=== PATIENT | female | born 1945 | race Caucasian/White ===

== ENCOUNTER 2018-12-23 14:16 | Emergency (ER) | payer MEDICARE, BC ==
[2018-12-23 14:42] VITALS: BP 148/111
--- NOTE | 2018-12-23 15:24 | UC ---
Skin Complaint HPI - HPI Summary HPI Summary: 73-year-old female presents for redness, swelling, and tenderness of the left arm. States this morning she noticed pain in her shoulder. She is visiting friends in the area from [place] and state in the time it took her to drive here she developed the redness and swelling that involves most of her arm. Also noted some shaking chills. She has history of both thyroid and breast cancer but states she has been in remission for years. 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 Denies chest pain or SOB. - History of Current Complaint Chief Complaint: UCSkin Time Seen by Provider: 12/23/18 14:54 Stated Complaint: SKIN COMPLAINT Hx Obtained From: Patient Pain Intensity: 5 - Allergy/Home Medications Allergies/Adverse Reactions: Allergies Allergy/AdvReac Type Severity Reaction Status Date / Time morphine Allergy Itching Verified 12/23/18 14:41 Home Medications: Home Medications Acetaminophen [Pain Relief Extra Strength] 2 tab PO ONCE PRN 12/23/18 [History Confirmed 12/23/18] Aspirin 1 tab PO DAILY 12/23/18 [History Confirmed 12/23/18] Cholecalciferol (Vitamin D3) [Vitamin D3] 5,000 unit PO DAILY 12/23/18 [History Confirmed 12/23/18] Estrogen Ring 1 unit VAGINAL ONCE 12/23/18 [History Confirmed 12/23/18] Levothyroxine TAB* [Synthroid 125 MCG TAB*] 1 tab PO DAILY 12/23/18 [History Confirmed 12/23/18] Propafenone HCl [Propafenone HCl ER] 1 tab PO BID 12/23/18 [History Confirmed ] Simvastatin 1 tab PO DAILY 12/23/18 [History Confirmed 12/23/18] PMH/Surg Hx/FS Hx/Imm Hx Endocrine History: Thyroid Disease, Dyslipidemia Cardiovascular History: Other - atrial tachycardia Other Cardiovascular History: Lymphedema left arm - Surgical History Surgical History: Yes Surgery Procedure, Year, and Place: lobectomy. lumpectomy left breast. thyroidectomy - Family History Known Family History: Positive: Non-Contributory - Social History Occupation: Retired Lives: With Family Alcohol Use: Daily Substance Use Type: Marijuana Smoking Status (MU): Never Smoked Tobacco Review of Systems All Other Systems Reviewed And Are Negative: Yes Constitutional: Positive: Chills Skin: Positive: Other - See HPI Respiratory: Positive: Negative Cardiovascular: Positive: Negative Gastrointestinal: Positive: Negative Genitourinary: Positive: Negative Musculoskeletal: Positive: Negative Neurological: Positive: Negative Is Patient Immunocompromised?: No Physical Exam - Summary Physical Exam Summary: GENERAL APPEARANCE: Alert and cooperative older adult female who appears to be in no acute distress. CARDIAC: Normal S1 and S2. No S3, S4 or murmurs. Rhythm is regular. There is no peripheral edema, cyanosis or pallor. Extremities are warm and well perfused. Capillary refill is less than 2 seconds. Peripheral pulses intact. LUNGS: Clear to auscultation without rales, rhonchi, wheezing or diminished breath sounds. ABDOMEN: Positive bowel sounds. Soft, nondistended, nontender. No guarding or rebound. No masses or hepatosplenomegally. MUSKULOSKELETAL: ROM intact to all extremities. No joint erythema or tenderness. Normal muscular development. Normal gait. EXTREMITIES: Circumferential tender, erythema that extends from the right wrist to mid upper arm. Increased warmth. No obvious lesions, induration, or fluctuance. Circulation and sensation intact. SKIN: Skin normal color, texture and turgor with no lesions or eruptions. Triage Information Reviewed: Yes Vital Signs: Initial Vital Signs Temp 100.2 F 12/23/18 14:28 Pulse 88 12/23/18 14:28 Resp 18 12/23/18 14:28 BP 148/111 12/23/18 14:28 Pulse Ox 97 12/23/18 14:28 Vital Signs Reviewed: Yes Course/Dx - Course Course Of Treatment: 73-year-old female presents for redness, swelling, and tenderness of the left arm. States this morning she noticed pain in her shoulder. She is visiting friends in the area from [place] and state in the time it took her to drive here she developed the redness and swelling that involves most of her arm. Also noted some shaking chills. She has history of both thyroid and breast cancer but states she has been in remission for years. 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 Denies chest pain or SOB. Elevated temperature of 100.2 F. Hypertensive otherwise vital signs stable. Patient had circumferential tender, erythema that extends from the right wrist to mid upper arm. Increased warmth to touch. No obvious lesions, induration, or fluctuance. Circulation and sensation intact. Remainder of exam was unremarkable. I discussed with the patient that with rapid onset of symptoms and elevated temperature along with her underlying medical conditions I am recommending that she be evaluated in the ED at this time. Patient is agreeable to this and is choosing to transfer via private vehicle with her friend driving. - Differential Diagnoses - Skin Complaint Differential Diagnoses: Cellulitis, Lymphangitis, Systemic Illness, Other - DVT - Diagnoses Provider Diagnosis: Fever, Cellulitis of left arm Discharge ED - Sign-Out/Discharge Documenting (check all that apply): Patient Departure All imaging exams completed and their final reports reviewed: No Studies - Discharge Plan Condition: Stable Disposition: HOME Referrals: No Primary Care Phys,NOPCP [Primary Care Provider] - Additional Instructions: I suspect that you have an infection of the skin called cellulitis however I cannot rule out other possible causes. With the rapid onset of your symptoms and your elevated temperature I am recommending that you be evaluated in the emergency room at this time. Go directly to the emergency room from here. - Billing Disposition and Condition Condition: STABLE Disposition: Home
== END 2018-12-23 15:36 | disposition home or self-care (01) ==
LOC: UCEAST 14:16
DX: L03.114 Cellulitis of left upper limb (principal); R50.9 Fever, unspecified; E78.5 Hyperlipidemia, unspecified; Z88.5 Allergy status to narcotic agent; Z79.899 Other long term (current) drug therapy; Z85.3 Personal history of malignant neoplasm of breast
CPT/HCPCS: 99202; G0463

== ENCOUNTER 2018-12-23 16:01 | Emergency (ER) | payer BC, MEDICARE ==
--- NOTE | 2018-12-23 17:24 | ED ---
Skin Complaint - HPI Summary HPI Summary: This pt is a 73 y/o female, with hx lymphedema of left arm, presenting to [facility] from [facility] c/o left arm pain, redness, and swelling today. Pt reports she traveled from [place] to [place], [place] to visit her friends. She notes she left [place] at around 0915 and felt pain in her left upper arm. She notes that 1.5 hours into the car ride she began to experience chills. Pt took Tylenol and chills resolved. Pt arrived to [place] at around 12:30 today and noticed her left arm was hot, swollen and red. Additionally notes her left arm was pruritic. Pt presents to the ED with a temperature of 100.3 F in triage. Denies chest pain, SOB, erythema of eyes, sore throat, chest pain, cough, adb pain, nausea, vomiting, dysuria, hematuria, myalgia, rash or dizziness. Denies any trauma, scrapes, or cuts to left arm. Denies any new exposure to lotions, medications, or soaps. Pt went to Urgent Care today and was referred to the ED to rule out cellulitis. Denies hx of blood clots. PMHx includes lymphedema of left arm, breast CA, thyroid CA. - History of Current Complaint Chief Complaint: EDExtremityUpper Time Seen by Provider: 12/23/18 16:56 Stated Complaint: NEEDS BLOOD WORK PER PT Hx Obtained From: Patient Onset/Duration: Started Hours Ago, Still Present Skin Exposure Onset/Duration: Hours Ago Timing: Constant, Lasting Hours Current Severity: Moderate Pain Intensity: 5 Pain Scale Used: 0-10 Numeric Skin Location: Arm - left Character: Swelling, Pruritus, Pain, Redness Aggravating Symptom(s): Nothing Alleviating Symptom(s): Nothing Associated Signs & Symptoms: Fever, Chills Related History: Other: - hx lymphedema of left arm - Allergy/Home Medications Allergies/Adverse Reactions: Allergies Allergy/AdvReac Type Severity Reaction Status Date / Time morphine Allergy Itching Verified 12/23/18 16:24 PMH/Surg Hx/FS Hx/Imm Hx Endocrine/Hematology History: Reports: Hx Thyroid Disease Musculoskeletal History: Reports: Other Musculoskeletal History - Lymphedema of left arm - Cancer History Cancer Type, Location and Year: breast ca. thyroid ca - Surgical History Surgical History: Yes Surgery Procedure, Year, and Place: lobectomy. lumpectomy left breast. thyroidectomy Infectious Disease History: No Infectious Disease History: Denies: Traveled Outside the [place] in Last 30 Days - Family History Known Family History: Positive: Non-Contributory - Social History Alcohol Use: Daily Substance Use Type: Reports: Marijuana Smoking Status (MU): Never Smoked Tobacco Review of Systems Positive: Fever, Chills Negative: Erythema Negative: Sore Throat Negative: Chest Pain Negative: Shortness Of Breath, Cough Negative: Vomiting, Nausea Negative: dysuria, hematuria Musculoskeletal: Other - POSITIVE: left arm pain Negative: Myalgia, Edema Skin: Other - POSITIVE: left arm swelling and redness Negative: Rash Neurological: Other - NEGATIVE: dizziness All Other Systems Reviewed And Are Negative: Yes Physical Exam - Summary Physical Exam Summary: Constitutional: Well-developed, Well-nourished, Alert. (-) Distressed Skin: Warm, Dry. Left upper extremity: erythema from the wrist up to the elbow, hot to touch, no induration or fluctuance. No axillary lymphadenopathy. No upper arm erythema or swelling. HENT: Normocephalic; Atraumatic Eyes: Conjunctiva normal Neck: Musculoskeletal ROM normal neck. (-) JVD, (-) Stridor, (-) Tracheal deviation Cardio: Rhythm regular, rate normal, Heart sounds normal; Intact distal pulses; The pedal pulses are 2+ and symmetric. Radial pulses are 2+ and symmetric. (-) Murmur Pulmonary/Chest wall: Effort normal. (-) Respiratory distress, (-) Wheezes, (-) Rales Abd: Soft, (-) Tenderness, (-) Distension, (-) Guarding, (-) Rebound Musculoskeletal: (-) Edema Lymph: (-) Cervical adenopathy Neuro: Alert, Oriented x3 Psych: Mood and affect Normal Triage Information Reviewed: Yes Vital Signs On Initial Exam: Initial Vitals Temp Pulse Resp BP Pulse Ox 100.3 F 87 16 98/75 97 12/23/18 16:20 12/23/18 16:20 12/23/18 16:20 12/23/18 16:20 12/23/18 16:20 Vital Signs Reviewed: Yes Procedures - Sedation Patient Received Moderate/Deep Sedation with Procedure: No Diagnostics - Vital Signs Vital Signs Temp Pulse Resp BP Pulse Ox 12/23/18 16:20 100.3 F 87 16 98/75 97 - Laboratory Lab Statement: Any lab studies that have been ordered have been reviewed, and results considered in the medical decision making process. Course/Dx - Course Assessment/Plan: Pt is a 73 y/o female, with hx lymphedema of left arm, presenting to [facility] from [facility] c/o left arm pain, redness, and swelling today. Pt reports she traveled from [place] to [place], [place] to visit her friends. [place] 0915 and felt pain in her left upper arm. She notes that 1.5 hours into the car ride she began to experience chills. Pt took Tylenol and chills resolved. Pt arrived to [place] at around 12:30 today and noticed her left arm was hot, swollen and red. Additionally notes her left arm was pruritic. Blood work was ordered. US of left upper extremity ordered. Sepsis protocol initiated. IN the ED course the pt was given IV fluids, Tylenol , Cefazolin. Pt will be signed out to Dr. Rothman pending lab results, US, and further disposition. - Diagnoses Provider Diagnoses: Sepsis, Left arm cellulitis Discharge ED - Sign-Out/Discharge Documenting (check all that apply): Sign-Out Patient Signing out patient TO: Phuong Rothman - Discharge Plan Condition: Stable Referrals: No Primary Care Phys,NOPCP [Primary Care Provider] - - Attestation Statements Document Initiated by Scribe: Yes Documenting Scribe: Shameka Ruiz Provider For Whom Scribe is Documenting (Include Credential): Bernardo Soni MD Scribe Attestation: Shameka Juares, scribed for Bernardo Soni MD on 12/23/18 at 1858. Status of Scribe Document: Ready
[2018-12-23] MEDS ORDERED: ceFAZolin 1 GM ADVAN(*) 1 GM in NS 0.9% 50 ML* 50 ML IVPB ONE (18:52)
[2018-12-23] MEDS ORDERED: NS 0.9% 1000 ML** 1,000 ML IV.FLUID IV ONE (18:53)
[2018-12-23] MEDS ORDERED: Acetaminophen TAB* 325 MG PO ONE (18:53)
--- NOTE | 2018-12-23 19:13 | ED ---
Progress - Progress Note Progress Note: This pt is a signout from Dr. Soni to Dr. Rothman at 1900 shift change pending US LUE. US LUE IMPRESSION: No DVT of the left upper extremity veins. Pt will be started on Clindamycin and rechecked in 48 hours. Course/Dx - Course Course Of Treatment: This pt is a signout from Dr. Soni to Dr. Rothman at 1900 shift change pending US LUE. US LUE IMPRESSION: No DVT of the left upper extremity veins. Pt will be started on Clindamycin and rechecked in 48 hours. - Diagnoses Provider Diagnoses: Cellulitis of left forearm Discharge ED - Sign-Out/Discharge Documenting (check all that apply): Patient Departure - discharge, Receiving Sign-Out Receiving patient FROM: Bernardo Soni - This pt is a signout from Dr. Soni to Dr. Rothman at 1900 shift change pending US LUE. - Discharge Plan Condition: Stable Disposition: HOME Prescriptions: Clindamycin HCl 300 mg PO QID #40 capsule Referrals: [facility] [Outside] - 3 Days Additional Instructions: Follow up with a primary care provider within 3 days. Return to the ED for any new or worsening symptoms. - Billing Disposition and Condition Condition: STABLE Disposition: Home - Attestation Statements Document Initiated by Pawan: Yes Documenting Scribe: Enrrique Renteria Provider For Whom Pawan is Documenting (Include Credential): Dr. Phuong Rothman MD Scribe Attestation: Enrrique Juares scribed for Dr. Phuong Rothmna MD on 12/24/18 at 0115. Scribe Documentation Reviewed: Yes Provider Attestation: The documentation as recorded by the Enrrique whaley accurately reflects the service I personally performed and the decisions made by me, Dr. Phuong Rothman MD Status of Scribgemma Document: Viewed
[2018-12-23 19:18] LABS: Hematocrit 41 % (35-47); Hemoglobin 13.2 g/dL (12.0-16.0); Mean Corpuscular HGB Conc 33 g/dL (31-36); Mean Corpuscular Hemoglobin 28 pg (27-31); Mean Corpuscular Volume 85 fL (80-97); Platelet Count 200 10^3/uL (150-450); Red Blood Count 4.77 10^6 /uL (3.70-4.87); Red Cell Distribution Width 14 % (10-15); White Blood Count 14.1 10^3/uL (3.5-10.8)
[2018-12-23 19:36] LABS: Albumin 4.5 g/dL (3.2-5.2); Albumin/Globulin Ratio 1.7 (1-3); BUN/Creatinine Ratio 17.8 (8-20); Calcium 9.4 mg/dL (8.6-10.3); EGFR African American 94.3 (>60); EGFR Non-African American 77.9 (>60); Globulin 2.7 g/dL (2-4); Potassium 3.9 mmol/L (3.5-5.0); Total Bilirubin 0.6 mg/dL (0.2-1.0); Total Protein 7.2 g/dL (6.4-8.9)
[2018-12-23 19:45] LABS: Activated Partial Thrombo Time 31.5 seconds (26.0-38.0); INR 1.12 (0.82-1.09)
[2018-12-23 20:40] VITALS: BP 131/66
== END 2018-12-23 21:31 | disposition home or self-care (01) ==
LOC: ED 16:01
DX: L03.114 Cellulitis of left upper limb (principal); A41.9 Sepsis, unspecified organism; Z85.3 Personal history of malignant neoplasm of breast; Z85.850 Personal history of malignant neoplasm of thyroid; Z88.5 Allergy status to narcotic agent; R50.9 Fever, unspecified; E78.5 Hyperlipidemia, unspecified; Z79.899 Other long term (current) drug therapy
CPT/HCPCS: 36415; 80053; 83605; 84484; 85027; 85610; 85730; 87040; 96365; 99202; 99283; A9270-GY; G0463; J0690